=== PATIENT | female | born 1975 | race Caucasian/White ===

== ENCOUNTER 2022-02-17 08:47 | Outpatient (CLI) | payer OTHER, SELFPAY ==
[2022-02-17 13:53] LABS: Chloride* 104 mmol/L (96-114)
[2022-02-17 13:54] LABS: Albumin* 4.2 g/dL (3.3-5.0); Sodium* 139 mmol/L (135-149)
[2022-02-17 13:55] LABS: Potassium* 4.2 mmol/L (3.6-5.1)
[2022-02-17 13:56] LABS: Carbon Dioxide* 30 mmol/L (20-32); Cholesterol* 190 mg/dL (90-199)
[2022-02-17 13:57] LABS: Alanine Aminotransferase* 25 U/L (4-35); Alkaline Phosphatase* 70 U/L (40-150); Aspartate Amino Transferase* 26 U/L (12-35); Bilirubin Total* 0.4 mg/dL (0.1-1.5); Blood Urea Nitrogen* 18 mg/dL (5-24); Calcium* 9.8 mg/dL (8.4-10.6); Creatinine* 0.9 mg/dL (0.5-1.5); Estimated Glomerular Filt Rate 79 ml/min; Glucose* 105 mg/dL (60-115); Total Protein* 7.1 g/dL (6.0-8.3); Triglycerides* 142 mg/dL (40-149)
[2022-02-17 13:58] LABS: Creatinine Urine 254.8 mg/dL; HDL Cholesterol* 37 mg/dL (>=50); LDL Cholesterol Calculated 125 mg/dL (<100)
[2022-02-17 13:59] LABS: Microalbumin Creatinine Ratio 0 mg/g (0-30); Microalbumin Urine 1 mg/dL
[2022-02-17 14:41] LABS: Vitamin B12* 278 pg/mL (243-894)
== END 2022-02-17 08:48 | disposition home or self-care (01) ==
LOC: NFLDREF 08:48
PROVIDERS: PCP Physician Assistant Medical; Visit Provider Physician Assistant Medical
DX: Z00.00 Encounter for general adult medical examination without abnormal findings (principal); E11.9 Type 2 diabetes mellitus without complications; I10 Essential (primary) hypertension; M79.672 Pain in left foot; M79.671 Pain in right foot; Z13.6 Encounter for screening for cardiovascular disorders
CPT/HCPCS: 80053; 80061; 82043; 82570; 82607; 84443

== ENCOUNTER 2022-04-05 19:24 | Outpatient (CLI) | payer OTHER, SELFPAY ==
--- NOTE | 2022-04-05 19:30 | CRLHL7_ITS ---
For Patients: As a result of the Century Cures Act, medical imaging exams and procedure reports are released immediately into your electronic medical record. You may view this report before your referring provider. If you have questions, please contact your health care provider. BILATERAL SCREENING MAMMOGRAM WITH COMPUTER-AIDED DETECTION AND TOMOSYNTHESIS TECHNIQUE: CC and MLO views were obtained. These mammographic images have been obtained using full-field digital technique. These mammographic images were interpreted with the benefit of computer-aided detection. Breast Tomosynthesis was used in this interpretation. COMPARISON FILM: 03/02/21, 02/14/20, 12/25/18. FINDINGS: The breasts are almost entirely fatty IMPRESSION: There is no radiographic evidence for malignancy. ASSESSMENT: BI-RADS Category 1: Negative RECOMMENDATION: Routine screening mammogram in 1 year. A lay language report of this examination will be provided to the patient. Amol Davidson M.D. Diagnostic Radiologist [email or web address] ROYAL/Dictated by: Amol Davidson MD @ 04/06/2022 8:05:00 AM (Electronically Signed)
== END 2022-04-05 19:25 | disposition home or self-care (01) ==
LOC: MAMMO 19:25
PROVIDERS: PCP Physician Assistant Medical; Visit Provider Physician Assistant Medical
DX: Z12.31 Encounter for screening mammogram for malignant neoplasm of breast (principal)
CPT/HCPCS: 77063; 77067

== ENCOUNTER 2023-05-22 08:12 | Outpatient (CLI) | payer OTHER, SELFPAY | END 2023-05-22 08:13 | disposition home or self-care (01) | LOC: NFLDREF 05-24 18:22 | PROVIDERS: PCP Physician Assistant Medical; Referring Provider Physician Assistant Medical; Visit Provider Physician Assistant Medical | DX: Z00.00 Encounter for general adult medical examination without abnormal findings (principal); E11.9 Type 2 diabetes mellitus without complications; E78.5 Hyperlipidemia, unspecified; I10 Essential (primary) hypertension | CPT/HCPCS: 80053; 80061; 82043; 82570; 82607; 84443 ==

== ENCOUNTER 2023-05-25 17:11 | Outpatient (CLI) | payer OTHER, SELFPAY ==
[2023-05-25 23:18] LABS: Chlamydia DNA Amplified* NOT DETECTED (No Detected); GC DNA Amplified* NOT DETECTED (No Detected)
== END 2023-05-25 17:12 | disposition home or self-care (01) ==
LOC: LKVREF 17:11
PROVIDERS: PCP Physician Assistant Medical; Visit Provider Physician Assistant Medical
DX: Z00.00 Encounter for general adult medical examination without abnormal findings (principal); E78.5 Hyperlipidemia, unspecified; I10 Essential (primary) hypertension; E11.9 Type 2 diabetes mellitus without complications; Z11.3 Encounter for screening for infections with a predominantly sexual mode of transmission
CPT/HCPCS: 87491; 87591

== ENCOUNTER 2023-08-01 18:59 | Outpatient (CLI) | payer OTHER, SELFPAY ==
--- NOTE | 2023-08-01 19:00 | CRLHL7_ITS ---
For Patients: As a result of the Cures Act, medical imaging exams and procedure reports are released immediately into your electronic medical record. You may view this report before your referring provider. If you have questions, please contact your health care provider. BILATERAL SCREENING MAMMOGRAM WITH COMPUTER-AIDED DETECTION AND TOMOSYNTHESIS TECHNIQUE: CC and MLO views were obtained. These mammographic images have been obtained using full-field digital technique. These mammographic images were interpreted with the benefit of computer-aided detection. Breast Tomosynthesis was used in this interpretation. COMPARISON FILM: 12/25/18, 02/14/20, 03/02/21. FINDINGS: The breasts are almost entirely fatty IMPRESSION: There is no radiographic evidence for malignancy. ASSESSMENT: BI-RADS Category 1: Negative RECOMMENDATION: Routine screening mammogram in 1 year. A lay language report of this examination will be provided to the patient. ABRAHAM RANGEL M.D. Diagnostic/Nuclear Medicine Radiologist [email or web address] MICHELET:zac Transcribed: 3:34 p.mCatie frank/Dictated by: Abraham Rangel MD @ 08/03/2023 8:45:00 AM (Electronically Signed)
--- OUTSIDE RECORDS SUMMARY | 2023-08-01 19:01 | XMS_ITS | Clinical Summary ---
Author Name Unknown Organization [facility] Address [place], [place] [address] Care Team Providers Care Proof Technician Helper Name Role Phone Pcp, No Primary Care Provider Unavailabl e Allergies No known active allergies Medications No known medications Active Problems Problem Noted Date Diagnosed Date Obesity, unspecified 11/09/2005 Encounters Date Type Department Care Team Description 05/26/2023 Lab Requisition [facility] [phone] Alena Ross PA-C from Last 3 Months Family History Medical History Relation Name Comments Genetic Other Family history of:~~Breast Cancer: Mat aunt~Mat gpa-= lung cancer~~Ovarian Cancer: No~~Colon CA: No~~Prostate/Testicular CA: No~~Osteoporosis: No~~Early CAD: No~~DM: No~~Thyroid Dz: No Relation Name Status Comments Other Social History Tobacco Use Types Packs/Day Years Used Date Smoking Tobacco: Never Smokeless Tobacco: Never Alcohol Use Standard Drinks/Week Comments No 0 (1 standard drink = 0.6 oz pur e alcohol) Sex and Gender Information Value Date Recorded Sex Assigned at Not on file Gender Identity Not on file Sexual Orientation Not on file Obstetrics History Last Filed Vital Signs Vital Sign Reading Time Taken Comments Blood Pressure 118/82 12/13/2012 9:09 AM CDT Pulse 68 12/13/2012 8:43 AM CDT Temperature 36.6 ??C (97.8 ??F) 12/13/2012 8:43 AM CD T Respiratory Rate 20 03/17/2004 12:0 0 AM CDT Oxygen Saturation - - Inhaled Oxygen Concentration - - Weight 122.6 kg (270 lb 3.2 oz) 12/13/2012 8:43 AM CDT Height 166 cm (5' 5.35) 12/13/2012 8:43 AM CDT Body Mass Index 44.48 12/13/2012 8:43 AM CDT Plan of Treatment Health Maintenance Due Date Last Done Comments COVID-19 vaccine series (#1) 05/10/1975 Tdap 1985 Depression screening for age 12+ 1986 HIV for age 15-65 1989 BMI (ht and wt on same day) for age 18+ 1992 Hepatitis C screening for ag e 18-79 1992 Tetanus booster 1994 Colonoscopy through age 75 11/09/2019 Lipids for age 45-75 11/09/2019 Mammogram for age 45-75 11/09/2019 Influenza for age 9-49 03/24/2023 Pap test for age 21-65 05/25/2026 3, 11/12/2018, 11/12/2018 Pneumococcal series for age 6-64 Aged Out No longer eligible b ased on patient's age to complete this topic Procedures Procedure Name Priority Date/Time Associated Diagnosis Comments LAB TRACKING EVENT Routine 05/25/2023 5: 00 PM CDT ELECTROMEDICAL EQUIPMENT REPAIRER THIN PREP PAP SCREEN IMAGED- Unsuccessful Attempt Routine 05/25/2023 5:00 PM CDT HPV THIN PREP Routine 05/25/2023 5:00 PM CDT from Last 3 Months Results * LAB TRACKING EVENT (05/25/2023 5:00 PM CDT) Other (Other) Client Collect / Unknown 05/25/2023 5:00 PM CDT 05/26/2023 3:07 PM CDT Alena Ross PA-C [facility] [address] [place] [address], * ELECTROMEDICAL EQUIPMENT REPAIRER THIN PREP PAP SCREEN IMAGED (05/25/2023 5:00 PM CDT) - Unsuccessful Attempt Case Report Gynecologic Cytology Report ? Case: [id number] ? Authorizing Provider: ??Alena Ross PA-C ?Collected: ? 05/25/2023 1700 ? Ordering Location: ? [facility] ?Received: ?05/29/2023 1350 ? First Screen: ?Baccam, Minie ? Rescreen: ?Dulce Cuellar ? Specimen: ?ELECTROMEDICAL EQUIPMENT REPAIRER ThinPrep Vial Screening, Cervical ? 06/07/2023 10:44 AM [facility] LABORATORY-C ENTRAL LABORATORY INTERPRETATION /RESULT UNSATISFACTORY FOR EVALUATION (UNS) (none) 06/07/2023 10:44 AM [facility] LABORATORY-C ENTRAL LABORATORY NISM(S) Shift in jim suggestive of bacterial vaginosis 06/07/2023 10:44 AM [facility] LABORATORY-C ENTRAL LABORATORY SPECIMEN ADEQUACY Specimen processed and examined, but unsatisfactory for evaluation of epithelial abnormality because of: Scant cellularity 06/07/2023 10:44 AM [facility] [employer] [facility] ENTRRI LABORATORY HPV REQUEST HPV and PAP 06/07/2023 10:44 AM FRYER OPERATOR [facility] [employer] [facility] LAB[facility]AT[facility] Date of LMP 04/07/2023 06/07/2023 10:44 AM [facility] ENTRAL LABORATORY Last Pap Date 11/12/2018 06/07/2023 10:44 AM [facility] Last Pap Result NIL 06/07/2023 10:44 AM [facility] [place] Bx Done Today No 06/07/2023 10:44 AM FRYER OPERATOR [facility] Additional Information 06/07/2023 10:44 AM [facility] Comment: Interpreted at [facility] - [address] [place] [address] [facility] [address] [address] Automated Review Failed 06/07/2023 10:44 AM [facility] Comment:Processing failed, m anual screening required. ThinPrep Imaging System, [employer] ANCILLARY TESTING ELECTROMEDICAL EQUIPMENT REPAIRER HPV Ordered, Please see separate report 06/07/2023 10:44 AM [facility] Note The pap test is a screening technique, not a diagnostic procedure. It is used primarily to screen for squamous cancers and precursor lesions. Published studies have shown that it is subject to both false negative and false positive results. The pap test should not be used as the sole means to diagnose or exclude pre-malignant and malignant lesions. 06/07/2023 10:44 AM [facility] Other (Cervical) 05/25/2023 5:00 PM CDT 05/29/2023 1:50 PM FRYER OPERATOR Alena Ross PA-C PATHOLOGY/CYTOLOGY [facility] [address] [place] [address], * HPV HIGH RISK (05/25/2023 5:00 PM CDT) TYPE 16 Negative Negative 05/31/2023 5:04 PM FRYER OPERATOR [facility] TRAL LABORATORY TYPE 18 Negative Negative 05/31/2023 5:04 PM FRYER OPERATOR [facility] TRAL LABORATORY OTHER HIGH RISK TYPES Negative Negative 05/31/2023 5:04 PM FRYER OPERATOR [facility] Other (Cervical) 05/25/2023 5:00 PM CDT 05/29/2023 1:50 PM FRYER OPERATOR Narrative [facility] - 05/31/2023 5:04 PM FRYER OPERATOR HPV types 16, 18, 31, 33, 35, 39, 45, 51, 52, 56, 58, 59, 66 and 68 DNA were undetectable or below the pre-set threshold. Methodology: Jose Miguel Nafisa 4800 HPV Test Alena Ross PA-C MICROBIOLOGY [facility] [address] [place] [address], from Last 3 Months Care Teams Proof Technician Helper Relationship Specialty Start Date End Date Pcp, No . PCP - General 08/24/16
--- OUTSIDE RECORDS SUMMARY | 2023-08-01 19:01 | XMS_ITS | Continuity of Care Document ---
Author Name Unknown Organization [employer] Address [address] [facility] [address] [place] [address] Insurance Providers Payer Plan Claims Address Claims Phone Policy Number Group Number Relation Employer Guarantor Name Guarantor Guarantor Address Guarantor Phone [facility] [employer] [address], [place] [address] tel:[phone] Self Geena Flores [address] [place] [id number] [facility] [address] [address], [place] [address] tel:[phone] Self Geena Alvarez Sandra [address] [place] [address] Problems Condition ICD9 code ICD10 code SNOMED code Start Date End Date S tatus Encounter for screening for other metabolic disorders Z13.228 Type 2 diabetes mellitus without complications E11.9 Final Hyperlipidemia, unspecified E78.5 Final Essential (primary) hypertension I10 Final Encounter for general adult medical examination without abnormal findings Z00.00 Final Hyperlipidemia, unspecified E78.5 Admitting Type 2 diabetes mellitus without complications E11.9 Admitting Essential (primary) hypertension I10 Admitting Encounter for general adult medical examination without abnormal findings Z00.00 Admitti ng Encounter for general adult medical examination without abnormal findings Z00.00 Final Encounter for general adult medical examination without abnormal findings Z00.00 Admitti ng Results No Results Allergies, adverse reactions, alerts No known allergies and adverse reactions Medications No administered medications reported Vital Signs No vital signs reported Social History No smoking Hx information available
== END 2023-08-01 19:00 | disposition home or self-care (01) ==
LOC: MAMMO 19:00
PROVIDERS: PCP Physician Assistant Medical; Visit Provider Physician Assistant Medical
DX: Z12.31 Encounter for screening mammogram for malignant neoplasm of breast (principal)
CPT/HCPCS: 77063; 77067

== ENCOUNTER 2024-03-08 08:08 | Outpatient (CLI) | payer OTHER, SELFPAY ==
--- OUTSIDE RECORDS SUMMARY | 2024-03-10 04:44 | XMS_ITS | Clinical Summary ---
Author Organization [facility] Address [address], [place] [address] Care Team Providers Care Four Slide Machine Operator Name Role Phone Needs Pcp, Assignment Primary Care Provider [phone] Source Comments You are receiving this document as you are listed as the primary care provider,follow-up provider, or the patient has been referred to you for consultation.This is in compliance with the Medicare and[facility] Cent[facility]aid EHR Incentive Program,which states Providers who transition their patient to another setting of careor provider of care or refers their patient to another provider of care shouldprovide summary care record for each transition of care or referral. [facility] Allergies No known active allergies Medications Medication Sig Dispensed Refills Start Date End Date Status diphenhydrAMINE (BENADRYL) 25 MG capsule Take 1 Capsule (25 mg) by mouth every 6 hours as needed for Itching (Take 25 mg by mouth every 6 hours as needed for Itching.). 02/01/2015 Active metFORMIN XR (GLUCOPHAGE XR) 500 MG 24 hour release tablet Take by mouth. 11/03/2023 Active losartan (COZAAR) 50 MG tablet Take 1 Tablet (50 mg) by mouth daily. 11/03/2023 Active hydroCHLOROthiazide (ORETIC) 25 MG tablet Take 1 Tablet (25 mg) by mouth daily. 11/03/2023 Active Probiotic Product (SUPER PROBIOTIC OR) Acti ve Active Problems No known active problems Social History Tobacco Use Types Packs/Day Years Used Date Smoking Tobacco: Never Sex and Gender Information Value Date Recorded Sex Assigned at Not on file Gender Identity Not on file Sexual Orientation Not on file Last Filed Vital Signs Vital Sign Reading Time Taken Comments Blood Pressure 121/70 11/28/2023 5:45 PM CDT Pulse 69 11/28/2023 5:45 PM CDT Temperature 36.7 ??C (98 ??F) 11/28/2023 5:45 PM CDT Respiratory Rate 20 11/28/2023 5:45 PM CDT Oxygen Saturation 98% 11/28/2023 5:45 PM CDT Inhaled Oxygen Concentration - - Weight - - Height - - Body Mass Index - - Plan of Treatment Health Maintenance Due Date Last Done Comments Cervical Cancer Screening Due 1974 Colon Cancer Screening Plan Due 1974 Hep C Screening (Preventive Services) 1974 Mammogram 1974 HIV Screening (Preventive Services) 1990 Adult Preventive Visit 1992 DTaP/Tdap/Td (1 - Tdap) 1993 HepB (1) 1993 Cholesterol 11/09/2019 COVID-19 Vaccine (1 - 2022-2 4 season) 2023 Influenza (#1) 2024 Zoster/Shingles (1 of 2) 2024 HepA Aged Out No longer eligi ble based on patient's age to complete this topic Hib Aged Out No longer eligi ble based on patient's age to complete this topic IPV (Polio) Aged Out No longer eligi ble based on patient's age to complete this topic MCV4 Aged Out No longer eligi ble based on patient's age to complete this topic Pneumococcal Aged Out No longer eligi ble based on patient's age to complete this topic Care Teams Four Slide Machine Operator Relationship Specialty Start Date End Date Needs Pcp, [place] [address] PCP - General 10/21/13
--- OUTSIDE RECORDS SUMMARY | 2024-03-10 04:45 | XMS_ITS | Continuity of Care Document ---
Author Organization [employer] Address [address] [facility] [address] [place] [address] Insurance Providers Payer Plan Claims Address Claims Phone Policy Number Group Number Relation Employer Guarantor Name Guarantor Guarantor Address Guarantor Phone [facility] [employer] [address], [place] [address] tel:[phone] Self Geena Flores [address] [place] [address] [facility] d Radha hcare [address] [address], [place] [address] tel:[phone] Self Geena K Sandra [address] [place] [address] Problems Condition ICD9 code ICD10 code [...] abnormal findings Z00.00 Final Hyperlipidemia, unspecified E78.5 Final Type 2 diabetes mellitus without complications E11.9 Final Hyperlipidemia, unspecified E78.5 Admitting Type 2 diabetes mellitus without complications E11.9 Admitting Results No Results Allergies, adverse reactions, alerts No known allergies and adverse reactions Medications No administered medications reported Vital Signs No vital signs reported Social History No smoking Hx information available
--- OUTSIDE RECORDS SUMMARY | 2024-03-10 04:45 | XMS_ITS | Clinical Summary ---
Author Organization [facility] [employer] [facility] Address [place], [place] [address] Care Team Providers Care Port Engineer Name Role Phone Pcp, No Primary Care Provider Unavailabl e Allergies No known active allergies Medications No known medications Active Problems Problem Noted Date Diagnosed Date Obesity, unspecified 11/09/2005 Family History Medical History Relation Name Comments [...] Health Maintenance Due Date Last Done Comments Tdap 1985 Depression screening for age 12+ 1986 HIV for age 15-65 1989 BMI (ht and wt on same day) for age 18+ 1992 Hepatitis C screening for ag e 18-79 1992 Tetanus booster 1994 Colonoscopy through age 75 11/09/2019 Lipids for age 45-75 11/09/2019 Mammogram for age 45-75 11/09/2019 COVID-19 vaccine series (2022-24 season) 2023 Influenza for age 9-49 03/24/2024 Pap test for age 21-65 05/25/2026 3, 11/12/2018, 11/12/2018 Pneumococcal series for age 6-64 Aged Out No longer eligible b ased on patient's age to complete this topic Procedures Procedure Name Priority Date/Time Associated Diagnosis Comments HPV THIN PREP Routine 05/25/2023 5:00 PM CDT from Last 3 Months or Most Recently Relevant to Health Maintenance Results * HPV HIGH RISK (05/25/2023 5:00 PM CDT) TYPE 16 Negative Negative 05/31/2023 5:04 PM DEHYDRATION UNIT OPERATOR [facility] TYPE 18 Negative Negative 05/31/2023 5:04 PM DEHYDRATION UNIT OPERATOR [facility] OTHER HIGH RISK TYPES Negative Negative 05/31/2023 5:04 PM DEHYDRATION UNIT OPERATOR [facility] Other (Cervical) 05/25/2023 5:00 PM CDT 05/29/2023 1:50 PM DEHYDRATION UNIT OPERATOR Narrative [facility] - 05/31/2023 5:04 PM DEHYDRATION UNIT OPERATOR HPV types 16, 18, 31, 33, 35, 39, 45, 51, 52, 56, 58, 59, 66 and 68 DNA were undetectable or below the pre-set threshold. Methodology: Jose Miguel Nafisa 4800 HPV Test Alena Ross PA-C [facility] [address] [place] [address], from Last 3 Months or Most Recently Relevant to Health Maintenance Care Teams Port Engineer Relationship Specialty Start Date End Date Pcp, No . PCP - General 08/24/16
== END 2024-03-08 08:09 | disposition home or self-care (01) ==
LOC: NFLDREF 03-10 04:43
PROVIDERS: PCP Physician Assistant Medical; Referring Provider Physician Assistant Medical; Visit Provider Physician Assistant Medical
DX: E78.5 Hyperlipidemia, unspecified (principal)
CPT/HCPCS: 80061; 80076

== ENCOUNTER 2024-12-31 18:02 | Outpatient (CLI) | payer OTHER, SELFPAY ==
--- NOTE | 2024-12-31 18:20 | CRLHL7_ITS ---
For Patients: As a result of the Century Cures Act, medical imaging exams and procedure reports are released immediately into your electronic medical record. You may view this report before your referring provider. If you have questions, please contact your health care provider. INDICATION: BILATERAL SCREENING MAMMOGRAM, ASYMPTOMATIC 49Y/F COMPARISON: 08/01/23, 04/05/22, 03/02/21 TECHNIQUE: Digital mammogram in CC and MLO projections including computer-aided detection (CAD) and tomosynthesis. BREAST COMPOSITION: The breasts are almost entirely fatty. FINDINGS: No suspicious findings. ASSESSMENT: BI-RADS 1 Negative RECOMMENDATION: Annual screening mammogram. A lay language report of this examination will be provided to the patient. Dictated by: Amol Davidson MD @ 01/01/2025 10:37:27 (Electronically Signed)
== END 2024-12-31 18:03 | disposition home or self-care (01) ==
LOC: MAMMO 18:03
PROVIDERS: PCP Physician Assistant Medical; Visit Provider Physician Assistant Medical
DX: Z12.31 Encounter for screening mammogram for malignant neoplasm of breast (principal)
CPT/HCPCS: 77063; 77067

== ENCOUNTER 2025-02-20 08:20 | Outpatient (CLI) | payer OTHER, SELFPAY | END 2025-02-20 08:21 | disposition home or self-care (01) | LOC: NFLDREF 02-21 15:10 | PROVIDERS: PCP Physician Assistant Medical; Referring Provider Physician Assistant Medical; Visit Provider Physician Assistant Medical | DX: Z00.00 Encounter for general adult medical examination without abnormal findings (principal); E78.5 Hyperlipidemia, unspecified; E11.9 Type 2 diabetes mellitus without complications; I10 Essential (primary) hypertension; Z13.21 Encounter for screening for nutritional disorder | CPT/HCPCS: 80053; 80061; 82043; 82570; 82607; 84443 ==

== ENCOUNTER 2025-02-24 18:10 | Outpatient (CLI) | payer OTHER, SELFPAY ==
[2025-02-27 07:06] LABS: HPV Source Cervix
[2025-03-05 16:51] LABS: Pap Test Digital Imaging Done; Pap Test Reviewed by Pathologi Done
== END 2025-02-24 18:11 | disposition home or self-care (01) ==
PROVIDERS: PCP Physician Assistant Medical; Visit Provider Physician Assistant Medical
DX: Z01.419 Encounter for gynecological examination (general) (routine) without abnormal findings (principal); Z11.3 Encounter for screening for infections with a predominantly sexual mode of transmission
CPT/HCPCS: 86703; 87491; 87591; 87624; 87625; 88141; 88142; 88175